=== PATIENT | male | born 1955 ===

== ENCOUNTER → 2022-03-17 13:42 | Outpatient (CLI) | payer MEDICARE, SELFPAY ==
--- NOTE | 2022-03-17 | DI.ECHO.S_ITS ---
[facility] +---------+ [facility] +---------+ : : [address] : [place] : : : : [id number] : : : : Phone: [phone]---------+ Echocardiogram Report + + :Name: MAREN BARROW Study Date: 03/17/2022 Height: 69 in : :[facility] ReadingLocation: Weight: 210 lb : : Gender: Male BSA: 2.1 m2 : :: 1955 Age: 67 yrs BP: 154/91 mmHg: :Reason For Study: Chest pain : :Ordering Physician: JUDY, : :STACEY Performed By: Tito Novoa : :Referring: STACEY KIM : + + Interpretation Summary The ejection fraction is estimated to be 60-65%. There is mild aortic regurgitation. Procedure: A two-dimensional transthoracic echocardiogram with color flow and Doppler was performed. The study quality was technically adequate. There is no prior echocardiogram noted for this patient. The patient was in normal sinus rhythm during the exam. Left Ventricle: The left ventricle is normal in size and wall thickness. Left ventricular systolic function is normal. The ejection fraction is estimated to be 60-65%. There are no focal wall motion abnormalities. Diastolic function could not be accurately assessed due to unobtainable data. Right Ventricle: The right ventricle is normal in size and function. Atria: Both atria are normal in size. The interatrial septum grossly appears intact with no obvious evidence for an atrial septal defect. Mitral Valve: There is mild mitral annular calcification. There is no mitral regurgitation noted. Aortic Valve: The aortic valve is normal in structure and function. There is mild aortic regurgitation. Tricuspid Valve: The tricuspid valve is normal in structure and function. No tricuspid regurgitation. Pulmonary artery pressures cannot be estimated because of the lack of a measurable TR jet velocity. Pulmonic Valve: The pulmonic valve is not well visualized. Great Vessels: The aortic root is normal size. The dimensions of the ascending aorta are normal. The IVC is of normal diameter and collapses greater than 50% with a sniff. This suggests a low right atrial pressure of 3 mm Hg. Pericardium/ Pleura There is no pericardial effusion. There is no pleural effusion. MMode/2D Measurements & Calculations LVIDd: 5.2 cm LVOT diam: 2.0 cm LVIDs: 3.7 cm Ao root diam: 3.7 cm FS: 28.8 % asc Aorta Diam: 3.4 cm IVSd: 0.90 cm LVPWd: 1.0 cm LV rcohe. diameter/BSA (cm/m^2): 2.5 LV sys. diameter/BSA (cm/m^2): 1.8 LA dimension: 3.4 cm RA long axis: 5.1 cm LA A2 area: 17.8 cm2 LA A4 area: 16.3 cm2 LA length (vol): 5.6 cm LA vol: 44.1 ml LA vol index: 20.9 ml/m2 TAPSE_phl: 3.1 cm Doppler Measurements & Calculations Ao V2 max: 177.0 cm/sec LVOT Max Srikanth: 153.0 cm/sec Ao V2 mean: 117.0 cm/sec LV V1 max P.4 mmHg Ao max P.0 mmHg LV V1 VTI: 27.7 cm Ao mean P.0 mmHg GOPAL(I,D): 2.9 cm2 Ao V2 VTI: 30.2 cm GOPAL(V,D): 2.7 cm2 sev ratio: 0.92 GOPAL indexed to BSA (cm^2/m^2): 1.4 MV E max srikanth: 70.8 cm/sec SV(LVOT): 87.0 ml MV A max srikanth: 102.0 cm/sec MV E/A: 0.69 Med Peak E' Srikanth: 5.5 cm/sec E/E' med: 12.8 Lat Peak E' Srikanth: 7.3 cm/sec E/E' lat: 9.8 E/e' average: 11.3 MV dec time: 0.27 sec AV VR_phl: 0.86 MV P1/2t-pr_phl: 80.0 msec GOPAL(VTI)/BSA_phl: 1.4 Reading Physician:02:46 PM
== END ==
PROVIDERS: PCP Physician Assistant Medical; Referring Provider Physician Assistant Medical; Visit Provider Physician Assistant Medical
DX: I35.1 Nonrheumatic aortic (valve) insufficiency (principal); R07.89 Other chest pain
CPT/HCPCS: 93306

== ENCOUNTER 2025-04-21 19:05 | Emergency (ER) | payer MEDICARE, SELFPAY ==
[2025-04-21 19:38] VITALS: BP 150/81; PULSE 78; RESP 18; TEMP 36.6; O2SAT 97; BMI 32.5
== END 2025-04-22 00:28 | disposition left against medical advice (07) ==
PROVIDERS: Emergency Provider Emergency Medicine; PCP Physician Assistant Medical
CPT/HCPCS: 99281